=== PATIENT | male | born 1950 | race American Indian/Alaskan Native ===

== ENCOUNTER 2018-08-02 11:40 | Day surgery (SDC) | payer OTHER ==
[2018-08-02] MEDS ORDERED: HEPARIN SUB-Q NR (12:30)
[2018-08-02 12:37] LABS: INR 0.89 (0.87-1.13); Partial Thromboplastin Time 22.5 Sec. (24.2-36.6)
[2018-08-02] MEDS ORDERED: LACTATED RINGERS 1,000 ML ONE (12:42)
--- NOTE | 2018-08-02 12:48 | Anesthesia Consultation ---
Anesthesia Consult and Med Hx Date of service: 08/02/18 - Airway Anesthetic Teeth Evaluation: Good ROM Head & Neck: Adequate Mental/Hyoid Distance: Adequate Mallampati Class: Class II Intubation Access Assessment: Good - Pulmonary Exam CTA: Yes - Cardiac Exam Cardiac Exam: RRR - Pre-Operative Health Status ASA Pre-Surgery Classification: ASA3 Proposed Anesthetic Plan: General - Pulmonary Hx Sleep Apnea: Yes - Cardiovascular System Hx Hypertension: Yes (2006) Hx Heart Attack/AMI: Yes (UNSURE IF PA VS TIA (JAN 2017)) - Central Nervous System Hx Back Pain: Yes Hx Psychiatric Problems: No - Other Systems Hx Alcohol Use: Yes Hx Substance Use: No
--- NOTE | 2018-08-02 12:49 | Anesthesia Day of Surgery ---
Anesthesia Day of Surgery - Day of Surgery Patient Examined: Yes Patient H&P Reviewed: Yes Patient is NPO: Yes Beta Blockers: No Cardiac Clearance: No Pulmonary Clearance: No
[2018-08-02] MEDS ORDERED: LACTATED RINGERS 1,000 ML IV SCH (13:00)
[2018-08-02] MEDS ORDERED: DILAUDID IV PRN (13:00)
[2018-08-02] MEDS ORDERED: SUBLIMAZE IV PRN (13:00)
[2018-08-02] MEDS ORDERED: ZOFRAN IV PRN (13:00)
[2018-08-02] MEDS ORDERED: NARCAN 0.4 MG/1 ML IV PRN (13:00)
[2018-08-02] MEDS ORDERED: XYLOCAINE CARDIAC IV ONE (13:14)
[2018-08-02] MEDS ORDERED: DIPRIVAN 10 MG/ML IV ONE ×4 (13:15→14:09)
[2018-08-02] MEDS ORDERED: SUBLIMAZE ONE (13:15)
[2018-08-02] MEDS ORDERED: VERSED ONE (13:19)
[2018-08-02] MEDS ORDERED: MARCAINE-EPI 0.25%-1:200,000 INFILTRATI ONE ×2 (13:38)
--- NOTE | 2018-08-02 14:18 | Post Operative Note ---
Pre-op diagnosis: 1) right thigh cyst, 2.5 cm 2) left axillary cyst, 1.5 cm Post-op diagnosis: same Findings: Excision of right thigh and left axillary cyst Anesthesia: MAC Surgeon: MAURILIO HILL Estimated blood loss: minimal Pathology: list (1) Right thigh cyst 2) Left axillary cyst) Specimen disposition: to lab Condition: stable Disposition: PACU
[2018-08-02] MEDS ORDERED: PERCOCET 5/325 PO PRN (14:50)
[2018-08-02 16:45] VITALS: BP 134/82
--- NOTE | 2018-08-08 13:42 | Procedure Note ---
Date of procedure: 08/02/18 Pre-op diagnosis: 1) Right thigh cyst, 2.5 cm 2) Left axillary cyst, 1.5 cm Post-op diagnosis: same Procedure: 1) Excision of 2.5 cm right thigh cyst 2) Excision of 1.5 cm left axillary cyst Description of procedure: Pt was placed supine on the OR table. Pt was sedated intravenously by anesthesia. The right thigh cyst area was prepped and draped. Skin and SQ tissue about the cyst was infiltrated with 4 ml of 0.5% Marcaine with epinephrine. The cyst was then excised via an ellipse. Bleeding was controlled with the Bovie. The wound was closed with a running, subcuticular suture of 4-0 Monocryl. A sterile absorbent dressing was applied. The left axilla was prepped and draped. Skin and SQ tissue about the cyst was infiltrated with 3 ml of 0.5% Marcaine with epinephrine. The cyst was then excised via an ellipse. Bleeding was controlled with the Bovie. Skin was approximated with a running, subcuticular suture of 4-0 Monocryl. A sterile absorbent dressing was applied. Pt tolerated the procedure well. He was taken to PACU in stable condition. Anesthesia: MAC Surgeon: MAURILIO HILL Estimated blood loss: minimal Pathology: list (1) Right thigh cyst 2) Left axillary cyst) Specimen disposition: to lab Condition: stable Disposition: PACU
== END 2018-08-02 16:05 | disposition home or self-care (01) ==
LOC: OR 11:40
PROVIDERS: ATTEND Surgery
DX: L72.0 Epidermal cyst (principal); L72.8 Other follicular cysts of the skin and subcutaneous tissue; E78.00 Pure hypercholesterolemia, unspecified; I10 Essential (primary) hypertension; I48.91 Unspecified atrial fibrillation; G47.30 Sleep apnea, unspecified; M19.90 Unspecified osteoarthritis, unspecified site; Z72.89 Other problems related to lifestyle; Z98.890 Other specified postprocedural states; Z80.1 Family history of malignant neoplasm of trachea, bronchus and lung; Z79.899 Other long term (current) drug therapy; Z88.0 Allergy status to penicillin; Z86.73 Personal history of transient ischemic attack (TIA), and cerebral infarction without residual deficits
CPT/HCPCS: 11402; 11403; 36415; 85610; 85730; 88304; J1644; J2001; J2250; J2704; J3010; J7120